=== PATIENT | male | born 1985 | race Caucasian/White ===

== ENCOUNTER 2016-08-02 19:42 | Emergency (ER) | payer MEDICAID, OTHER ==
[~2016-08-02] VITALS: Ht 170.2 cm; Wt 121.6 kg
[2016-08-02 19:49] VITALS: BP 140/84
--- NOTE | 2016-08-02 20:55 | NUR ---
AMBULATED TO ER BED 1
--- NOTE | 2016-08-02 21:00 | NUR ---
HEADACHE, SORE THROAT, COUGH, AND SOB X2 DAYS . SKIN IS PINK/WARM/DRY; AAOX4 WITH EVEN AND STEADY GAIT; LUNGS CLEAR BL; HR EVEN AND REGULAR; PT DENIES ANY FEVER, CP, AT THIS TIME; PATIENT STATES PAIN OF 8/10 AT THIS TIME; VSS; PATIENT POSITIONED FOR COMFORT; HOB ELEVATED; BEDRAILS UP X2; BED DOWN. ER MD MADE AWARE OF PT STATUS.
--- NOTE | 2016-08-02 21:46 | NUR ---
PT EVALUATED BY
[2016-08-02 22:05] VITALS: BP 140/84
--- NOTE | 2016-08-02 22:07 | NUR ---
Patient discharged with v/s stable. Written and verbal after care instructions given and explained. Patient alert, oriented and verbalized understanding of instructions. Ambulatory with steady gait. All questions addressed prior to discharge. ID band removed. Patient advised to follow up with PMD. Rx of ZOFRAN, DEXTROMETHORPHAN,AUGMENTIN given. Patient educated on indication of medication including possible reaction and side effects. Opportunity to ask questions provided and answered.
--- NOTE | 2016-08-02 22:10 | NUR ---
PT REQUESTED A PAIN MEDICATION AND MD PRESCRIBED MOTRIN 800MG. PT WAS ANGRY. EXPLAINED TO THE PT ABOUT THE RX MEDICATION. PT LEFT THE PRESCIPTION FOR HIS PAIN ON HIS BED.
== END 2016-08-02 22:05 | disposition home or self-care (01) ==
LOC: MED 19:48
DX: J02.8 Acute pharyngitis due to other specified organisms (principal); B96.89 Other specified bacterial agents as the cause of diseases classified elsewhere; Z88.5 Allergy status to narcotic agent

== ENCOUNTER 2016-10-15 00:39 | Emergency (ER) | payer OTHER ==
[~2016-10-15] VITALS: Ht 167.6 cm; Wt 117.9 kg
[2016-10-15 01:00] VITALS: BP 111/74
--- NOTE | 2016-10-15 01:23 | NUR ---
PT TAKEN TO BED 6
--- NOTE | 2016-10-15 01:27 | NUR ---
31 Y/O M W/C/O LOWER ABD PAIN AND BURNING WITH URINATION X 1 DAY. DENIES ANY FEVER, N/V. CARSON FOWLER MADE AWARE.
--- NOTE | 2016-10-15 01:38 | NUR ---
Dr. Woo evaluating patient at bedside.
[2016-10-15] MEDS ORDERED: HYDROcodone/APAP 5/325 MG 1 TAB TAB PO ONE (01:40)
[2016-10-15] MEDS ORDERED: KETOROLAC 30 MG/ML VIAL IM ONE (01:40)
--- NOTE | 2016-10-15 01:58 | NUR ---
PT RETURN FROM CT
--- NOTE | 2016-10-15 03:48 | NUR ---
Note trupti in EDM - 10/15/16 at 0409 by CARROL Patient discharged with v/s stable. Written and verbal after care instructions given and explained. Patient alert, oriented and verbalized understanding of instructions. Ambulatory with steady gait. All questions addressed prior to discharge. ID band removed. Patient advised to follow up with PMD OR RETURNOCHLORIDE TO ER IF CONDITION WORSENS. Rx of PHENAZOPYRIDE HYDRgiven. Patient educated on indication of medication including possible reaction and side effects. Opportunity to ask questions provided and answered.
[2016-10-15 03:54] VITALS: BP 122/78
--- NOTE | 2016-10-15 03:54 | NUR ---
Patient discharged with v/s stable. Written and verbal after care instructions given and explained. Patient alert, oriented and verbalized understanding of instructions. Ambulatory with steady gait. All questions addressed prior to discharge. ID band removed. Patient advised to follow up with PMD OR RETURNOCHLORIDE TO ER IF CONDITION WORSENS. Rx of PHENAZOPYRIDE HYDRgiven. Patient educated on indication of medication including possible reaction and side effects. Opportunity to ask questions provided and answered.
== END 2016-10-15 03:54 | disposition home or self-care (01) ==
LOC: MED 00:39
DX: M54.5 Low back pain (principal); R30.0 Dysuria; R39.15 Urgency of urination; Z98.890 Other specified postprocedural states; Z88.5 Allergy status to narcotic agent
CPT/HCPCS: 36415; 74176; 80048; 81001; 82550; 87491; 96372; 99285; J1885